=== PATIENT | male | born 1960 | race Caucasian/White ===

== ENCOUNTER → 2020-09-21 | Outpatient (CLI) | payer OTHER, BC | LOC: EMI 07:58 | DX: M47.26 Other spondylosis with radiculopathy, lumbar region (principal); M47.27 Other spondylosis with radiculopathy, lumbosacral region | CPT/HCPCS: 72148 ==

== ENCOUNTER 2020-11-16 10:38 | Emergency (ER) | payer BC ==
[~2020-11-16] VITALS: Ht 175.3 cm; Wt 97.5 kg
[2020-11-16 12:31] LABS: HEMOGLOBIN 15.7 gm/dl (14.0-17.5); RED BLOOD COUNT 5.29 M/UL (4.20-5.50)
[2020-11-16 12:51] LABS: BUN/CREATININE RATIO 14 (0-10)
[2020-11-16] MEDS ORDERED: CHILDREN'S ASPI81 MG PO (13:09)
== END 2020-11-16 15:20 | disposition home or self-care (01) ==
LOC: ER1 10:38
DX: U07.1 COVID-19 (principal); I10 Essential (primary) hypertension
CPT/HCPCS: 71045; 80053; 85025; 99283